=== PATIENT | female | born 1970 | race Caucasian/White ===

== ENCOUNTER → 2018-07-21 | Outpatient (CLI) | payer BC ==
[2018-07-21 17:56] LABS: HEMATOCRIT 45.1 % (36.0-47.0); HEMOGLOBIN 14.4 g/dl (12.0-15.5); MEAN CORPUSCULAR HEMOGLOBIN 25.9 pg (27.0-33.0); MEAN CORPUSCULAR HGB CONC 31.9 g/dl (32.0-36.5); MEAN CORPUSCULAR VOLUME 81.3 fl (80.0-96.0); PLATELET COUNT, AUTOMATED 337 10^3/uL (150-450); RED BLOOD COUNT 5.55 10^6/uL (4.00-5.40); WHITE BLOOD COUNT 8.4 10^3/uL (4.0-10.0)
[2018-07-21 18:42] LABS: HEMOGLOBIN A1c 6.6 %
[2018-07-23 15:05] LABS: HPV HYBRID CAPTURE II Negative (Negative)
== END ==
LOC: M SMT 13:42
PROVIDERS: ATTEND Obstetrics & Gynecology
DX: N93.9 Abnormal uterine and vaginal bleeding, unspecified (principal); Z11.51 Encounter for screening for human papillomavirus (HPV)
CPT/HCPCS: 36415; 83036; 84443; 85027; 87624; G0123

== ENCOUNTER → 2018-09-07 | Outpatient (REF) | payer BC ==
[~2018-09-07] MED LIST: CITA-231 PO; COLA100C5 PO; FERR325T3 PO; FLUT44IN INH; IBUP80TA PO; IRBE150T14 PO; METO25TA4 PO; PERCOCET PO; REQU4TAB3 PO; SPIR-10 PO; TOPA50TA8 PO; WOME1TAB3 PO
== END ==
LOC: M LAB REF 17:23
PROVIDERS: ATTEND Obstetrics & Gynecology
DX: N93.9 Abnormal uterine and vaginal bleeding, unspecified (principal)

== ENCOUNTER 2018-09-25 10:28 | Day surgery (SDC) | payer BC ==
[2018-09-25] VITALS (8 sets, daily range): BP systolic 126–144; BP diastolic 80–87
[~2018-09-25] VITALS: Ht 157.5 cm; Wt 129.7 kg
[2018-09-25] MEDS: LR 1,000 ML IV SCH (00:23)
[~2018-09-25 10:28] MED LIST changes: -COLA100C5 PO; -IBUP80TA PO; +LIDOCAINE 2% INJ 100 MG/5 ML SDV (FOR ANES.) As Ordered ONE; +LR 1,000 ML IV ONE; +METOCLOPRAMIDE INJ 10MG/2ML VIAL (J2765) As Ordered ONE; -PERCOCET PO; +PROPOFOL 200 MG/20 ML VIAL As Ordered ONE; +ROCURONIUM BROMIDE 50 MG/5 ML VIAL As Ordered ONE; +dexameTHASONE 4 MG/ML 1ML VIAL (J1100) As Ordered ONE
[2018-09-25] MEDS ORDERED: fentaNYL 250 MCG/5 ML INJECTION (J3010) As Ordered ONE (10:56)
[2018-09-25] MEDS ORDERED: MIDAZOLAM INJ 2 MG/2 ML VIAL (J2250) As Ordered ONE (10:57)
[2018-09-25 11:08] LABS: HEMATOCRIT 42.7 % (36.0-47.0); HEMOGLOBIN 13.7 g/dl (12.0-15.5); MEAN CORPUSCULAR HEMOGLOBIN 26.2 pg (27.0-33.0); MEAN CORPUSCULAR HGB CONC 32.1 g/dl (32.0-36.5); MEAN CORPUSCULAR VOLUME 81.8 fl (80.0-96.0); PLATELET COUNT, AUTOMATED 283 10^3/uL (150-450); RED BLOOD COUNT 5.22 10^6/uL (4.00-5.40); WHITE BLOOD COUNT 6.7 10^3/uL (4.0-10.0)
[2018-09-25] MEDS ORDERED: BUPIVACAINE HCL 0.25% 30 ML VIAL As Ordered ONE (12:38)
[2018-09-25] MEDS ORDERED: METHYLENE BLUE 0.5% (5MG/ML) 10 ML AMP (PROVAYBLUE)(Q9968 PER 1MG) As Ordered ONE (13:06)
[2018-09-25] MEDS ORDERED: SUCCINYLCHOLINE 100 MG/5 ML SYRINGE (J0330) As Ordered ONE (14:10)
[2018-09-25] MEDS ORDERED: ROCURONIUM BROMIDE 50 MG/5 ML VIAL As Ordered ONE ×2 (14:11→16:35)
[2018-09-25] MEDS ORDERED: METOPROLOL 5 MG/5 ML VIAL As Ordered ONE (15:20)
[2018-09-25] MEDS ORDERED: LABETALOL HCL 100 MG/20 ML VIAL As Ordered ONE (15:22)
[2018-09-25] MEDS ORDERED: KETOROLAC 60 MG/2 ML VIAL (J1885) As Ordered ONE (16:29)
[2018-09-25] MEDS ORDERED: ONDANSETRON 4MG/2ML VIAL (J2405) As Ordered ONE (16:29)
[2018-09-25] MEDS ORDERED: SUGAMMADEX SODIUM 500 MG/5 ML VIAL (BRIDION) As Ordered ONE (16:30)
[2018-09-25] MEDS ORDERED: HYDROmorphone HCL 2 MG/ML 1ML VIAL (J1170) As Ordered ONE (16:40)
[2018-09-25] MEDS ORDERED: ceFAZolin 2 GM/D5W 50 ML IV BAG (J0690 PER 500MG) As Ordered ONE (16:56)
[2018-09-25] MEDS ORDERED: ONDANSETRON 4MG/2ML VIAL (J2405) IV PRN ×2 (17:45→18:00)
[2018-09-25] MEDS ORDERED: PERCOCET 5MG/325MG TAB PO PRN ×2 (17:45)
[2018-09-25] MEDS ORDERED: PROMETHAZINE INJ 25 MG/ML VIAL (J2550) IV PRN (17:45)
[2018-09-25] MEDS ORDERED: fentaNYL 100 MCG/2 ML INJECTION (J3010) IV PRN (18:00)
[2018-09-25] MEDS ORDERED: LR 1,000 ML IV SCH (18:00)
[2018-09-25] MEDS ORDERED: HYDROMORPHONE HCL 0.5 MG/ 0.5 ML SYRINGE (J1170 PER 1) IV PRN (18:00)
[2018-09-25] MEDS ORDERED: NORCO, ANEXSIA 5/325MG TABLET (HYDROcodone/ACETAMINOPHEN) PO PRN (18:00)
--- NOTE | 2018-09-25 18:33 | NUR ---
Operative Note DATE OF PROCEDURE: 09/25/2018 PREOPERATIVE DIAGNOSIS: 1. Abnormal uterine bleeding. Uterine leiomyoma POSTOPERATIVE DIAGNOSIS: 1. Abnormal uterine bleeding. Uterine leiomyoma PROCEDURE PERFORMED: Robotic-assisted total laparoscopic hysterectomy, bilateral salpingectomy and cystoscopy. SURGEON: Ean Alcala DO. PACKING MACHINE PILOT CAN ROUTER: MICHEAL Cordoba (needed for uterine manipulation). ANESTHESIA: General endotracheal. SPECIMENS TO PATHOLOGY: Uterus, cervix with bilateral fallopian tubes ESTIMATED BLOOD LOSS: 150 mL. FLUIDS REPLACED: 2.2 liters lactated Ringer's. DRAINS: Pearce catheter 200 mL. COMPLICATIONS: None. PREOPERATIVE ANTIBIOTICS: Ancef 2g IV x 2 (administered within 30 minutes of procedure start time). Redosed during the surgery. INTRAOPERATIVE FINDINGS: Uterus was approximately 14 cm in greatest dimension. The uterus was of abnormal shape/contour (due to leiomyomas). A significant amount of adhesive disease was noted in the lower pelvis, particularly along the lower uterine segment/bladder, and the pelvic sidewalls. The right and left ovary and fallopian tubes were normal in appearance. Cystoscopic findings: No bladder injury. No suture material. Bilateral ureteral orifice efflux visualized after IV infusion of methylene blue. INDICATION: Abnormal uterine bleeding due to large uterine leiomyoma, desirous of hysterectomy PROCEDURE: The patient was counseled and consented on the risks, benefits, indications, and alternatives of the procedure. Informed consent was obtained. She was take n to the operating room with an IV running and placed on the operating table in the dorsal supine position. General anesthesia was administered and airway secured without any difficulty. The patient was placed in a level horizontal low lithotomy position. She was prepped and draped in a normal sterile fashion. A time-out was performed per protocol. A Pearce catheter was placed under sterile conditions. A sterile speculum was placed into the vagina with go od visualization of the cervix. The anterior lip of the cervix was grasped with a single-tooth tenaculum and downward traction was applied. The uterus was sounded to 10 cm. The cervix was sequentially dilated with Segundo dilators up to #16. The anterior and posterior lip were tagged with and interrupted stitch using #0 Vicryl suture. The VCare uterine manipulator was placed in typical fashion without any difficulty. The single-toothed tenaculum was removed. The sterile speculum was removed. The VCare uterine manipulator was noted to be adequately in place. A glove switch was performed. Attention was turned to the abdomen. A 2 mm umbilical incision was made with the 11 blade. The Veress needle was placed through this incision into the intraperitoneal cavity. Intraperitoneal placement was confirmed with the following checks: no resistance/ease of flow of normal saline from the attached syringe through the Veress needle, no return of blood/fluid/succus upon aspirating with the attached syringe, a positive drop test, and the opening pressure during insufflation was less than 10 mmHg. The abdomen was insufflated with 2.5 liters of gas. The Veress needle was removed. An 8 mm horizontal midline, supraumbilical incision was made with the 11 blade. Through this incision, a size 8 mm cannula was placed under direct visualization technique into the intraperitoneal cavity. Intraperitoneal placement was confirmed. The patient was placed in a low lithotomy steep Trendelenberg position. The right and left lower quadrant port sites were placed via 8 mm incisions using the 11 blade. The 8 mm da Diana cannulas were placed under laparoscopic guidance on both sides. After the successful placement of all the DaVinci cannulas, the robot was easily side-docked. Attention was turned to the [employer] robotic console. The right and left distal fallopian tubes were identified and excised with the Da Diana vessel sealer instrument, thus removing both fimbriated ends of each fallopian tube. These specimens were brought through the accessory cannula and sent to pathology for permanent section. The right fallopian tube, utero-ovarian ligament, and round ligament were sequentially clamped, coagulated and transected with the DaVinci vessel sealer device. The Da Diana vessel sealer was used to dissect and mobilize the right-sided half of the vesicouterine peritoneum/"bladder flap" with both blunt and bipolar dissection. This also required an extensive amount of adhesiolysis. The right uterine vasculature was skeletonized and identified. Excellent hemostasis was achieved. The left fallopian tube, utero-ovarian ligament and round ligament were sequentially clamped, coagulated and transected using the Da Diana vessel sealer device. The left uterine vasculature was skeletonized and easily identified. Excellent hemostasis was noted. The remainder of the vesicouterine peritoneum was dissected and mobilized along the anterior portion of the VCare uterine manipulator cup in order to complete the bladder flap. This also required an extensive amount of adhesiolysis. This resulted in adequate mobilization/displacement of the bladder away from the cervix. During all of the dissection described above, an occasional small bleeding vessel needed to be cauterized with the DaVinci fenestrated bipolar forceps. The right and left uterine vasculature were sequentially clamped, coagulated and transected with both DaVinci fenestrated bipolar forceps and vessel sealer instruments. Excellent blanching of the uterus was noted, thus indicating that the blood supply to the uterus was obliterated. Excellent hemostasis was noted. The DaVinci monopolar refugio were used to create the circumferential colpotomy around the VCare cervical cup border. Incidental small bleeding vaginal vessels were cauterized with the DaVinci PK bipolar forceps. This circumferential incision was completed and the uterus with the cervix was noted to be fully amputated as one unit. This specimen was unable to be brought through the colpotomy into the vagina given its large size. An Sanju extraction system was placed through the colpotomy and the uterine/cervix specimen was placed in the containment bag. The ring was brought out of the vag osiel, the plastic ring protector was placed into the vagina within the bag. The specimen was visualized and grasped with a single-tooth tenaculum and downward traction was applied. The specimen was then morcellated with a long 10 blade. The morcellated specimen was able to be entirely removed once it had been reduced in size. The Sanju extraction system was removed from the vagina and the morcellated uterus and cervix were sent to pathology for permanent section. I turned my attention back to the robotic console. The vaginal cuff was closed in running fashion with V-Loc suture. Excellent hemostasis of the vaginal cuff was noted. The lower abdomen/pelvis was irrigated and suctioned, thus removing all blood and clot. Excellent hemostasis was noted. Annika was placed over the surgical sites to maintain hemostasis. The insufflation gas was released from the intraperitoneal cavity. All cannulas were removed. The robot was un-docked without any difficulty. The patient was taken out of steep Trendelenburg and placed back into a level horizontal low lithotomy position. The Pearce catheter was removed. A 30 degree cystoscope was placed transurethrally into the bladder. The entire bladder mucosa was examined. There was no evidence of a bladder injury or suture material. Brisk bilateral ureteral orifice efflux of urine was visualized after IV infusion of methylene blue. The cystoscope was removed and the Pearce catheter was replaced. The vagina was copiously irrigated. The vag inal cuff was palpated and noted to be intact. The sponge, needle, and instrument counts were correct. A glove switch was performed. Attention was turned back to the abdomen. Patient was taken out of Trendelenburg. The gas was released from the abdomen. The cannulas were all removed. Each skin incision was closed with #4-0 Monocryl in subcuticular fashion and reinforced with Dermabond. Sponge, needle, and instrument counts we re again correct. The patient tolerated the entire procedure well. She was transferred to the postanesthesia care unit in good and stable condition. Murray Alcala DO
[2018-09-25] MEDS: DOCUSATE SODIUM 100 MG CAP PO SCH (20:41)
[2018-09-25] MEDS: METOPROLOL TART 25 MG TABLET PO SCH (20:41)
[2018-09-25] MEDS: FERROUS SULFATE 325MG TAB PO SCH (20:41)
[2018-09-25] MEDS: TOPIRAMATE (TopAMAX) 25 MG TAB PO SCH (20:41)
[2018-09-25] MEDS ORDERED: FLUTICASONE HFA 44 MCG 10.6GM INHALER (FLOVENT) INH SCH (21:00)
[2018-09-25] MEDS ORDERED: rOPINIRole 1MG TAB PO SCH (21:00)
[2018-09-26] MEDS: KETOROLAC 30 MG/ML VIAL (J1885) IV SCH ×2 (00:15→05:07)
[2018-09-26 02:00] VITALS: BP 124/80
[2018-09-26 06:00] VITALS: BP 124/81
[2018-09-26 07:13] LABS: BASO % 0.2 % (0.0-1.0); EOS % 0.2 % (0.0-3.0); HEMATOCRIT 35.1 % (36.0-47.0); LYMPH # 1.6 10^3/uL (1.5-4.5); LYMPH % 13.5 % (24.0-44.0); MEAN CORPUSCULAR HGB CONC 32.2 g/dl (32.0-36.5); MEAN CORPUSCULAR VOLUME 80.9 fl (80.0-96.0); MONO # 0.8 10^3/uL (0.0-0.8); MONO % 6.8 % (0.0-5.0); NEUTROPHILS # 9.1 10^3/uL (1.8-7.7); PLATELET COUNT, AUTOMATED 260 10^3/uL (150-450); RED BLOOD COUNT 4.34 10^6/uL (4.00-5.40); WHITE BLOOD COUNT 11.6 10^3/uL (4.0-10.0)
[2018-09-26 07:16] LABS: HEMOGLOBIN 11.3 g/dl (12.0-15.5)
[2018-09-26] MEDS ORDERED: CitaloPRAM (CeleXA) 20 MG TAB PO SCH (09:00)
[2018-09-26] MEDS: METOPROLOL TART 25 MG TABLET PO SCH (09:00)
[2018-09-26] MEDS ORDERED: SPIRONOLACTONE 25 MG TAB PO SCH (09:00)
[2018-09-26] MEDS ORDERED: MULTIVITAMINS/MINERALS THERAP 1 TAB PO SCH (09:00)
[2018-09-26] MEDS ORDERED: IRBESARTAN 150 MG TAB PO SCH (09:00)
[2018-09-26] MEDS: FERROUS SULFATE 325MG TAB PO SCH (10:51)
[2018-09-26] MEDS: TOPIRAMATE (TopAMAX) 25 MG TAB PO SCH (10:53)
[2018-09-26] MEDS: DOCUSATE SODIUM 100 MG CAP PO SCH (10:53)
[2018-09-26] MEDS: LR 1,000 ML IV SCH ×2 (11:01→11:04)
[2018-09-26] MEDS ORDERED: COLA100C5 PO (11:53)
[2018-09-26] MEDS ORDERED: IBUP80TA PO (11:53)
[2018-09-26] MEDS ORDERED: PERCOCET PO (11:53)
[2018-09-26] MEDS ORDERED: IBUPROFEN 800 MG TAB PO SCH (19:45)
== END 2018-09-26 13:10 | disposition home or self-care (01) ==
LOC: M SDC 10:28 → M MS5PR 18:48 → M SDC 09-26 13:10
PROVIDERS: ATTEND Obstetrics & Gynecology
DX: N92.0 Excessive and frequent menstruation with regular cycle (principal); D25.1 Intramural leiomyoma of uterus; D25.0 Submucous leiomyoma of uterus; I10 Essential (primary) hypertension; G47.30 Sleep apnea, unspecified; F32.9 Major depressive disorder, single episode, unspecified; Z79.899 Other long term (current) drug therapy
CPT/HCPCS: 36415; 58571; 84702; 85025; 85027; 86850; 86900; 86901; 88307; 94640; J0330; J0690; J1100; J1170; J1885; J2250; J2405; J2765; J3010; Q9968

== ENCOUNTER → 2022-07-22 | Outpatient (CLI) | payer BC, MEDICAID ==
[~2022-07-22] MED LIST changes: -CITA-231 PO; +CITA40TA6 PO; +COLA100C5 PO; +HYDR-3490 PO; +IBUP80TA PO; -LIDOCAINE 2% INJ 100 MG/5 ML SDV (FOR ANES.) As Ordered ONE; +LOSA100T45 PO; -LR 1,000 ML IV ONE; -METOCLOPRAMIDE INJ 10MG/2ML VIAL (J2765) As Ordered ONE; +OMEP1CAP73 PO; +PERCOCET PO; -PROPOFOL 200 MG/20 ML VIAL As Ordered ONE; -ROCURONIUM BROMIDE 50 MG/5 ML VIAL As Ordered ONE; +ROPI4TAB3 PO; +ROSU5TAB5 PO; +VITMTA PO; -dexameTHASONE 4 MG/ML 1ML VIAL (J1100) As Ordered ONE
== END ==
LOC: M LABSMTC 10:16
PROVIDERS: ATTEND Anesthesiology
DX: Z01.812 Encounter for preprocedural laboratory examination (principal); Z20.822 Contact with and (suspected) exposure to COVID-19

== ENCOUNTER 2022-07-26 09:37 | Day surgery (SDC) | payer MEDICAID ==
[~2022-07-26] VITALS: Ht 157.5 cm; Wt 131.6 kg
[~2022-07-26 09:37] MED LIST changes: +NS 1,000 ML IV ONE
[2022-07-26] MEDS ORDERED: LIDOCAINE 2% 100MG/5ML SDV (FOR ANES.) As Ordered ONE (12:49)
[2022-07-26] MEDS ORDERED: propofoL 200 MG/20 ML VIAL As Ordered ONE ×2 (12:49→12:58)
[2022-07-26] MEDS ORDERED: GLYCOPYRROLATE INJ 0.2 MG/ML 2 ML VIAL As Ordered ONE (12:51)
[2022-07-26 13:19] VITALS: BP 126/71
== END 2022-07-26 13:25 | disposition home or self-care (01) ==
LOC: M OPP 09:37
PROVIDERS: ATTEND Internal Medicine Gastroenterology
DX: Z12.11 Encounter for screening for malignant neoplasm of colon (principal); Z80.0 Family history of malignant neoplasm of digestive organs; K64.8 Other hemorrhoids; K44.9 Diaphragmatic hernia without obstruction or gangrene; R12 Heartburn; Z79.02 Long term (current) use of antithrombotics/antiplatelets; Z79.891 Long term (current) use of opiate analgesic; Z79.899 Other long term (current) drug therapy; Z91.013 Allergy to seafood; J45.909 Unspecified asthma, uncomplicated; F32.9 Major depressive disorder, single episode, unspecified; F41.9 Anxiety disorder, unspecified; I10 Essential (primary) hypertension; E78.00 Pure hypercholesterolemia, unspecified; D64.9 Anemia, unspecified; G25.81 Restless legs syndrome; G47.33 Obstructive sleep apnea (adult) (pediatric); Z80.3 Family history of malignant neoplasm of breast; Z80.8 Family history of malignant neoplasm of other organs or systems; Z80.49 Family history of malignant neoplasm of other genital organs